=== PATIENT | female | born 1975 | race Caucasian/White ===

== ENCOUNTER 2022-06-28 15:50 | Emergency (ER) | payer OTHER ==
[2022-06-28] MEDS ORDERED: Sodium Chloride 0.9% 1000 ML 1,000 ML ONE (16:23)
[2022-06-28] MEDS ORDERED: Ativan 2 MG/1 ML VIAL IV ONE (16:26)
[2022-06-28 16:27] LABS: Hematocrit 44.9 % (35-47); Mean Cell Volume 100.7 fL (78-100); Mean Corpuscular Hemoglobin 33.6 pg (26-32); Mean Corpuscular Hgb Concent. 33.4 g/dL (32-36); Mean Platelet Volume 9.1 fL (7.5-11.0); Platelet Count 292 x10^3/uL (150-450); Red Blood Count 4.46 x10^6/uL (4.1-5.4); Red Cell Distribution Width 12.1 % (11.5-14.0); White Blood Count 15.3 x10^3/uL (4.0-10.5)
[2022-06-28] MEDS ORDERED: Ativan 2 MG/1 ML VIAL ONE (16:27)
[2022-06-28] MEDS ORDERED: Sodium Chloride 0.9% 1000 ML 1,000 ML IV SCH (16:30)
[2022-06-28] MEDS ORDERED: SANDOSTATIN 50MCG/ML IV STA (16:37)
[2022-06-28] MEDS ORDERED: FLAGYL 500 MG IVPB 500 MG/100 ML BAG IV STA (16:38)
[2022-06-28 16:39] LABS: ALBUMIN 4.9 g/dL (3.5-5.0); ALKALINE PHOSPHATASE 197 U/L (38-126); ANION GAP 23.9 MEQ/L (5-15); BLOOD UREA NITROGEN 4 mg/dL (7-17); CHLORIDE 104 mmol/L (98-107); Calcium 9.3 mg/dL (8.4-10.2); Carbon Dioxide 23 mmol/L (22-30); Creatinine 1 0.39 mg/dL (0.52-1.04); EST GLOMERULAR FILTRATION RATE > 60.0 ML/MIN; Glucose 130 mg/dL (74-106); Potassium 4.1 mmol/L (3.5-5.1); SGOT/AST 190 U/L (14-36); SGPT/ALT 145 U/L (0-35); SODIUM 146 mmol/L (137-145)
[2022-06-28] MEDS ORDERED: Levofloxacin 500MG/100ML D5W 500 MG/100 ML BAG IV STA (16:39)
[2022-06-28 16:40] LABS: INR 1.05 (0.8-3.0); PROTIME 11.4 SECONDS (9.4-12.5); PTT 27.4 SECONDS (25.1-36.5)
[2022-06-28] MEDS ORDERED: SODIUM CHLORIDE 0.9% IV SCH (17:00)
[2022-06-28] MEDS ORDERED: NEOSYNEPHRINE 0.5% NASAL SPRAY/DROPS NS ONE (17:00)
[2022-06-28] MEDS ORDERED: SANDOSTATIN IV SCH (17:00)
[2022-06-28] MEDS ORDERED: FLAGYL 500 MG IVPB 500 MG/100 ML BAG IV ONE (17:02)
[2022-06-28] MEDS ORDERED: NEOSYNEPHRINE 0.5% NASAL SPRAY/DROPS ONE (17:07)
[2022-06-28 17:11] LABS: ANISOCYTOSIS 1+; ATYPICAL LYMPHS 2 %; Eosinophil 1 % (0.00-3.0); Lymphocytes 38 % (24-44); Neutrophils 59 % (36.0-66.0); Platelet Estimate NORMAL (NORMAL); Total Cells Counted 100; Toxic Granulation 1+
[2022-06-28 17:19] LABS: ABO TYPING O; Antibody Screen NEGATIVE (NEGATIVE); RH TYPING POSITIVE
[2022-06-28] MEDS ORDERED: Levofloxacin 500MG/100ML D5W 500 MG/100 ML BAG IV ONE (17:44)
[2022-06-28] MEDS ORDERED: ARZOL Silver Nitrate Applicator TP ONE ×3 (18:19→18:26)
[2022-06-28 18:24] VITALS: BP 104/59; PULSE 89; O2SAT 95
--- NOTE | 2022-06-28 18:26 | ERPHSYRPT ---
- History of Present Illness Time Seen by Provider: 06/28/22 16:00 Source: patient Exam Limitations: no limitations Patient Subjective Stated Complaint: C/O nosebleed that started approx 30 minutes ago. Patient states this is her third nose bleed today. Originally only bleeding from left nare but is now bleeding from both nares. Triage Nursing Assessment: Patient arrived by ambulance. No SOB. SKin tone normal. She is alert and oriented; anxious. Active bleeding from both nares; left more than right. Physician History: Patient is a 46-year-old female presents to our ED via EMS for evaluation of epistaxis. Upon physical examination patient had blood coming from both nostrils and her mouth. Patient spitting up large clots. Large amount of bleeding observed. Patient appears very anxious. Patient tachycardic on the monitor. No trauma. No fever. Patient states this is her third nosebleed of the day. Patient had 2 other nosebleeds however they stopped spontaneously. Patient has been bleeding significantly more than an hour. No fever. No chills. No recent URI. Patient states that she has had other episodes of epistaxis that required intervention and resolved. Patient adds that she has a history of alcoholism. Patient tends to withdraw if she does not drink her alcohol. Patient states she has a history of liver cirrhosis. It is unclear whether or not patient has portal hypertension. No history of ascites. Symptoms are constant. Symptoms are moderate to severe in intensity. No significant worsening improving factors. Patient voices no other complaints or concerns at this time. Portions of this note were created with voice recognition technology. There may be grammatical, spelling, punctuation or sound alike errors Allergies/Adverse Reactions: Penicillins Allergy (Verified 06/28/22 15:52) Home Medications: Lifitegrast [Xiidra] 1 drop R BID 06/28/22 [History] PANTOPRAZOLE 40 mg Tablet [Protonix 40MG Tablet] 1 tab PO DAILY 06/28/22 [History] Rosuvastatin Calcium 1 tab PO DAILY 06/28/22 [History] Venlafaxine HCl [Venlafaxine HCl ER] 1 tab PO DAILY 06/28/22 [History] hydrOXYzine HCL [Hydroxyzine HCl] 15 mg PO DAILY PRN 06/28/22 [History] Hx Tetanus, Diphtheria Vaccination/Date Given: Yes Hx Influenza Vaccination/Date Given: No Hx Pneumococcal Vaccination/Date Given: No Immunizations Up to Date: Yes Travel Risk - International Travel Have you traveled outside of the country in past 3 weeks: No - Coronavirus Screening Are you exhibiting any of the following symptoms?: No Close contact with a COVID-19 positive Pt in past 14-21 Days: No - Vaccine Status Have you recieved a Covid-19 vaccination: Yes 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 - Review of Systems All Other Systems: Unable due to condition - Past Medical History Pertinent Past Medical History: Yes Cardiac History: High Cholesterol Musculoskeletal History: Fractures GI Medical History: GERD Psycho-Social History: Anxiety, Depression Other Medical History: dry eyes - Past Surgical History Past Surgical History: Yes Female Surgical History: Dilation & Curettage, Tubal Ligation, Other Other Surgical History: ablasion, Bilateral foot surgery - Social History Smoking Status: Former smoker Exposure to second hand smoke: No Drug Use: none Patient Lives Alone: No - Female History Hx Last Menstrual Period: No longer has them Hx Now: No - Nursing Vital Signs Nursing Vital Signs: Initial Vital Signs Pulse Rate 136 H 06/28/22 15:51 Respiratory Rate 17 06/28/22 15:51 Blood Pressure 144/126 06/28/22 15:51 O2 Sat by Pulse Oximetry 97 06/28/22 15:51 Pain Scale Pain Intensity 0 - Physical Exam General Appearance: moderate distress Eye Exam: PERRL/EOMI, eyes nml inspection, No scleral icterus Ears, Nose, Throat Exam: other (Large amount of blood from both nostrils and mouth. Patient spitting up large blood clots into emesis bag.) Neck Exam: normal inspection, non-tender, supple, full range of motion Respiratory Exam: normal breath sounds, chest tenderness, lungs clear, respiratory distress Cardiovascular Exam: normal peripheral pulses, tachycardia, other (Sinus tachycardia. Normal heart sounds.), No murmur Gastrointestinal/Abdomen Exam: soft, normal bowel sounds, No tenderness, No distention Extremity Exam: normal inspection, normal range of motion, pelvis stable Neurologic Exam: alert, oriented x 3, cooperative Skin Exam: normal color, warm, dry Lymphatic Exam: No adenopathy SpO2 Interpretation: normal SpO2: 95 O2 Delivery: Room Air - Course Nursing assessment & vital signs reviewed: Yes EKG Interpreted by Me: RATE ([id number]), Sinus Tach, NORMAL AXIS, NORMAL INTERVALS - Radiology Ultrasound Exam Abdomen Ultrasound: discussed w/radiologist (Fire Crew Worker. 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 06/28/22 16:22 Active IV Insertion STAT Care 06/28/22 16:21 Active ABDOMINAL-LIMITED [US] Stat Exams 06/28/22 17:18 Taken CBC W DIFF Stat Lab 06/28/22 16:25 Completed CMP Stat Lab 06/28/22 16:25 Completed Manual Differential NC Stat Lab 06/28/22 16:25 Completed PROTIME WITH INR Stat Lab 06/28/22 16:25 Completed PTT Stat Lab 06/28/22 16:25 Completed Medication Summary Generic Name Dose Route Start Last Admin Trade Name Freq PRN Reason Stop Dose Admin Sodium Chloride 1,000 mls @ 100 mls/hr 06/28/22 16:30 06/28/22 16:24 Sodium Chloride 0.9% 1000 Ml IV 07/28/22 16:29 100 mls/hr .Q10H RADHA Administration Octreotide Acetate 250 mcg/ 250 mls @ 50 mls/hr 06/28/22 17:00 06/28/22 16:51 Sodium Chloride IV 06/28/22 21:59 50 mls/hr .Q5H RADHA 50 mls/hr Administration Discontinued Medications Generic Name Dose Route Start Last Admin Trade Name Freq PRN Reason Stop Dose Admin Metronidazole 500 mg in 100 mls @ 200 mls/hr 06/28/22 16:38 06/28/22 17:43 Flagyl 500 Mg Ivpb IV 06/28/22 17:07 Infused STAT STA Infusion Levofloxacin/Dextrose 500 mg in 100 mls @ 100 mls/hr 06/28/22 16:39 06/28/22 17:45 Levofloxacin 500mg/100ml D5w IV 06/28/22 17:38 100 mls/hr STAT STA 100 mls/hr Administration Metronidazole Confirm 06/28/22 17:02 Flagyl 500 Mg Ivpb Administered 06/28/22 17:03 Dose 500 mg in 100 mls @ ud IV .STK-MED ONE Levofloxacin/Dextrose Confirm 06/28/22 17:44 Levofloxacin 500mg/100ml D5w Administered 06/28/22 17:45 Dose 500 mg in 100 mls @ ud IV .STK-MED ONE Lorazepam 1 mg 06/28/22 16:26 06/28/22 16:28 Lorazepam 2 Mg/1 Ml 2 Mg Vial IV 06/28/22 16:27 1 mg STAT ONE Administration Lorazepam Confirm 06/28/22 16:27 Lorazepam 2 Mg/1 Ml 2 Mg Vial Administered 06/28/22 16:28 Dose 2 mg .ROUTE .STK-MED ONE Octreotide Acetate 50 mcg 06/28/22 16:37 06/28/22 16:44 Octreotide Acetate 50 Mcg/Ml Ampul IV 06/28/22 16:38 50 mcg ONCE STA Administration Phenylephrine HCl Confirm 06/28/22 17:07 Neosynephrine 0.5% Nasal [place]/Drops Administered 06/28/22 17:08 Dose 15 ml .ROUTE .STK-MED ONE Phenylephrine HCl 15 ml 06/28/22 17:00 06/28/22 17:24 Neosynephrine 0.5% Nasal [place]/Drops NS 06/28/22 17:01 15 ml STAT ONE Administration Silver Nitrate 1 pkt 06/28/22 18:19 06/28/22 18:26 Silver Nitrate 1 Pkt Each TP 06/28/22 18:20 1 pkt NOW ONE Administration Silver Nitrate Confirm 06/28/22 18:20 Silver Nitrate 1 Pkt Each Administered 06/28/22 18:21 Dose 1 pkt TP .STK-MED ONE Lab/Rad Data: Laboratory Result Diagrams 06/28/22 16:25 06/28/22 16:25 Laboratory Results 06/28/22 06/28/22 06/28/22 Range/Units 16:41 16:25 16:25 WBC (4.0-10.5) x10^3/uL RBC (4.1-5.4) x10^6/uL Hgb (12.0-16.0) g/dL Hct (35-47) % MCV (78-100) fL MCH (26-32) pg MCHC (32-36) g/dL RDW (11.5-14.0) % Plt Count (150-450) x10^3/uL MPV (7.5-11.0) fL Segmented Neutrophils (36.0-66.0) % Lymphocytes (Manual) (24-44) % Eosinophils (Manual) (0.00-3.0) % Atypical Lymphocytes % Toxic Granulation Platelet Estimate (NORMAL) RBC Morphology Anisocytosis PT 11.4 (9.4-12.5) SECONDS INR 1.05 (0.8-3.0) APTT 27.4 (25.1-36.5) SECONDS Sodium 146 H (137-145) mmol/L Potassium 4.1 (3.5-5.1) mmol/L Chloride 104 (98-107) mmol/L Carbon Dioxide 23 (22-30) mmol/L Anion Gap 23.9 H (5-15) MEQ/L BUN 4 L (7-17) mg/dL Creatinine 0.39 L (0.52-1.04) mg/dL Estimated GFR > 60.0 ML/MIN Glucose 130 H (74-106) mg/dL Calcium 9.3 (8.4-10.2) mg/dL Total Bilirubin 0.70 (0.2-1.3) mg/dL AST 190 H (14-36) U/L ALT 145 H (0-35) U/L Alkaline Phosphatase 197 H (38-126) U/L Serum Total Protein 9.0 H (6.3-8.2) g/dL Albumin 4.9 (3.5-5.0) g/dL ABO Group O Rh Factor POSITIVE Antibody Screen NEGATIVE (NEGATIVE) 06/28/22 Range/Units 16:25 WBC 15.3 H (4.0-10.5) x10^3/uL RBC 4.46 (4.1-5.4) x10^6/uL Hgb 15.0 (12.0-16.0) g/dL Hct 44.9 (35-47) % MCV 100.7 H (78-100) fL MCH 33.6 H (26-32) pg MCHC 33.4 (32-36) g/dL RDW 12.1 (11.5-14.0) % Plt Count 292 (150-450) x10^3/uL MPV 9.1 (7.5-11.0) fL Segmented Neutrophils 59 (36.0-66.0) % Lymphocytes (Manual) 38 (24-44) % Eosinophils (Manual) 1 (0.00-3.0) % Atypical Lymphocytes 2 % Toxic Granulation 1+ Platelet Estimate NORMAL (NORMAL) RBC Morphology ABNORMAL Anisocytosis 1+ PT (9.4-12.5) SECONDS INR (0.8-3.0) APTT (25.1-36.5) SECONDS Sodium (137-145) mmol/L Potassium (3.5-5.1) mmol/L Chloride (98-107) mmol/L Carbon Dioxide (22-30) mmol/L Anion Gap (5-15) MEQ/L BUN (7-17) mg/dL Creatinine (0.52-1.04) mg/dL Estimated GFR ML/MIN Glucose (74-106) mg/dL Calcium (8.4-10.2) mg/dL Total Bilirubin (0.2-1.3) mg/dL AST (14-36) U/L ALT (0-35) U/L Alkaline Phosphatase (38-126) U/L Serum Total Protein (6.3-8.2) g/dL Albumin (3.5-5.0) g/dL ABO Group Rh Factor Antibody Screen (NEGATIVE) - Progress Progress: improved Progress Note: Treatment course include octreotide. Octreotide infusion stopped patient's bleeding. Patient later had trickle of blood from her left nare. We administered Carlos- Synephrine which appeared to help transiently. Patient later began to trickle blood from her left nostril. We applied a nose clamp. However in spite of the nose clamp patient continued has some trickle of blood from her left nostril. We then identified what appears to be a possible bleeding source. The area was cauterized using silver nitrate. This appeared to help. Patient later decided that she feels well and wants to go home. Patient's had significant medical advice. Patient is of sound mind. Patient is appropriate to make informed and independent medical decisions. Patient understands that leaving AGAINST MEDICAL ADVICE can result in delayed diagnosis, increased risk of morbidity, mortality, short and long-term disability including . In spite of these risks, patient has decided to leave AGAINST MEDICAL ADVICE. Patient understands that she may return to our ED at any point if she reconsiders. Patient agrees to follow-up with her primary care doctor within 48 hours for reevaluation. Patient voices no other complaints or concerns at this time. We will release patient AGAINST MEDICAL ADVICE per their request. Vital stable. Tachycardia resolved. We attempted to transfer patient various times. We contacted [facility]. Transfer declined as they do not have ENT and or interventional radiology currently available. I spoke to Dr. Evans GI physician at [facility] who declined transfer. Dr. Mendoza was a hospitalist who also declined transfer. Prior to declining transfer they advised obtaining a right upper quadrant ultrasound to assess if in fact patient has cirrhosis. Right upper quadrant ultrasound was completed. Fatty liver observed. Study was limited due to excessive bowel gas. Hepatic veins not well visualized due to excessive bowel gas. However no clear signs of liver cirrhosis. No ascites report was generated by stitcher feeder. Official read pending. We contacted [facility] and [facility]. Transferred declined as they did not have GI available. We contacted [place] on [address]. Patient declined that transfer. We contacted [facility] patient declined [facility] transfer also. Patient decided she felt well enough to go home. Patient left AGAINST MEDICAL ADVICE. As patient was in AGAINST MEDICAL ADVICE, her left nare began to bleed again after the cautery was completed. We will now place a Rhino Rocket. Rhino Rocket placed. Rhino Rocket size is 4.5. patient tolerated procedure well. No complications. Patient will leave AGAINST MEDICAL ADVICE. A Keflex prescription will be provided to patient. Portions of this note were created with voice recognition technology. There may be grammatical, spelling, punctuation or sound alike errors Patient is a 46-year-old female presents emergency department for evaluation of oropharyngeal bleeding possible esophageal variceal bleeding possible severe epistaxis. Bleeding resolved after administration of octreotide. We attempted transfer to several locations. Transfers were declined as they did not have ENT GI and interventional radiology readily available. Patient refused transfer to [facility] and [facility] as they were too far. Patient has a history of alcoholism. Patient tends to withdraw. Patient received a dose of Ativan to temporize her from withdrawal while she was in our ED. Physical exam reveals large amounts of blood coming from both nostrils as well as oropharynx. Testing ordered includes right upper quadrant ultrasound which reveals fatty liver. No obvious signs of portal hypertension/ascites. CBC CMP. Coagulation profile including PT/INR/PTT. No coagulopathy observed. Type and screen orde red. Silver nitrate stick used for cautery. Ativan use withdrawal. It was felt that patient had a esophageal variceal bleed. Flagyl Levaquin ordered. We attempted to order Zosyn but patient is allergic to penicillin. Phenylephrine also used to vasoconstrict the nasal vasculature. Rhino Rocket placed. Patient's complaint is acute. Patient was initially tachycardic. However as she calmed down and bleeding stopped tachycardia resolved. Patient was never hypotensive. Blood pressure was within normal limits. Complexity of problems addressed was moderate. New diagnosis with uncertain prognosis. Possible exacerbation of chronic illnesses patient states she has had nosebleeds in the p ast. No critical care time. Complexity of data reviewed and analyzed is moderate. EKG reviewed and interpreted by Dr. Hankins. Test ordered and reviewed. Patient served as independent historian. We discussed management with several outside doctors. However transfer was declined due to the lack of full spectrum specialist required to care for patient. Risk of complications and/or risk of morbidity/mortality of management is high. Patient received octreotide for bleeding control. Rhino Rocket placed. IV infusion/medications required to maintain control of bleeding. Patient was eating AMA. She was being rolled out of our ED she began to bleed again. Bleeding started after the octreotide was discontinued. Rhino Rocket in place. Patient decided to come back to our ED. Change of shift. Patient endorsed to Dr. Agudelo for final disposition. 06/28/22 18:54 Counseled pt/family regarding: lab results, diagnosis, need for follow-up, rad results - Departure Departure Disposition: AMA Clinical Impression: Oropharyngeal bleeding, Epistaxis Condition: Stable Critical Care Time: No Referrals: ADAN EARL, CONTINUOUS DRYOUT OPERATOR HELPER [Primary Care Provider] - Follow up/PCP as directed Additional Instructions: Return to our ED or follow-up with your family doctor to remove the Rhino Rocket, (nose packing) in 24 to 48 hours. Take antibiotic prescribed while the Rhino Rocket is in place. Discharge/Care Plan GHAZALAJEWELL was seen on 06/28/22 in the Emergency Room. The patient was counseled regarding Diagnosis,Lab results, Imaging studies, need for follow up and when to return to the Emergency Room. Prescriptions given: Discharge Note I have spoken with the patient and/or caregivers. I have explained the patient's condition, diagnosis and treatment plan based on the information available to me at this time. I have answered the patient's and/or caregiver's questions and ad dressed any concerns. The patient and/or caregivers have as good understanding of the patient's diagnosis, condition and treatment plan as can be expected at this point. The vital signs have been stable. The patient's condition is stable and appropriate for discharge from the emergency department. The patient will pursue further outpatient evaluation with the primary care physician or other designated or consulting physician as outlined in the discharge instructions. The patient and/or caregivers are agreeable to this plan of care and follow-up instructions have been explained in detail. The patient and/or caregivers have received these instruction. The patient/and or caregivers are aware that any significant change in condition or worsening of symptoms should prompt an immediate return to this or the closest emergency department or call 911. Prescriptions: Smz/Tmp Ds Tablet [Bactrim Ds Tablet] 1 udtab PO BID #14 tablet Smz/Tmp Ds Tablet [Bactrim Ds Tablet] 1 udtab PO BID 5 Days #10 tablet
[2022-06-28 19:43] LABS: Hematocrit 37.7 % (35-47); Hemoglobin 12.4 g/dL (12.0-16.0)
--- NOTE | 2022-06-29 08:36 | XRAY ---
Indication: Epistaxis. Hepatic steatosis. Two-dimensional right upper quadrant abdominal sonogram performed. Comparison: None Visualized liver demonstrates mild diffuse fatty echogenicity without focal solid/cystic mass or ascites. Portable vein demonstrates normal hepatopedal flow. Gallbladder normally distended without gallstones, wall thickening, or pericholecystic fluid. Common bile duct measures 3.6 mm. Pancreas obscured due to overlying bowel gas. Right kidney sonographically unremarkable and measures 10.6 cm in length Impression: Fatty liver. Nonvisualization pancreas. Remaining right upper quadrant sonogram is negative. Comment: Preliminary report was given.
== END 2022-06-28 18:50 | disposition left against medical advice (07) ==
LOC: ED 15:50
DX: R04.0 Epistaxis (principal); R58 Hemorrhage, not elsewhere classified; E78.5 Hyperlipidemia, unspecified; Z79.899 Other long term (current) drug therapy
CPT/HCPCS: 30901; 36000; 36415; 76705; 80053; 85014; 85018; 85025; 85610; 85730; 86850; 86900; 86901; 93041; 96365; 96367; 96374; 96375; 99284; J1956; J2060; J2354; A9270-GY

== ENCOUNTER 2022-06-28 18:55 | Emergency (ER) | payer OTHER ==
[2022-06-28] MEDS ORDERED: SANDOSTATIN 50MCG/ML IV ONE (18:56)
[2022-06-28] MEDS ORDERED: Sodium Chloride 0.9% 1000 ML 1,000 ML ONE (19:23)
[2022-06-28] MEDS ORDERED: Ativan 2 MG/1 ML VIAL ONE (19:23)
[2022-06-28] MEDS ORDERED: Sodium Chloride 0.9% 1000 ML 1,000 ML IV STA (19:30)
[2022-06-28] MEDS ORDERED: Ativan 2 MG/1 ML VIAL IV ONE (19:41)
--- NOTE | 2022-06-28 19:47 | ERPHSYRPT ---
- History of Present Illness Time Seen by Provider: 06/28/22 19:00 Source: patient Patient Subjective Stated Complaint: PT signed out ama and when she got to the waiting room, wanted to come back in. Triage Nursing Assessment: Pt signed out ama after trying to convince her to get transferred and when she went to waiting room, she started to bleed from her nose again. Physician History: Patient is a 46-year-old white female who presents with massive epistaxis and or upper GI bleed possibly varices. She was in the ER she was started on octreotide. Her bleeding was temporarily controlled and arrangements were being made to transfer her to a higher level of care when she signed out AMA. She went to the waiting room she started bleeding a little bit more and she was returned to the ER for transfer. Allergies/Adverse Reactions: Penicillins Allergy (Verified 06/28/22 15:52) Home Medications: Lifitegrast [Xiidra] 1 drop R BID 06/28/22 [History] PANTOPRAZOLE 40 mg Tablet [Protonix 40MG Tablet] 1 tab PO DAILY 06/28/22 [History] Rosuvastatin Calcium 1 tab PO DAILY 06/28/22 [History] Venlafaxine HCl [Venlafaxine HCl ER] 1 tab PO DAILY 06/28/22 [History] hydrOXYzine HCL [Hydroxyzine HCl] 15 mg PO DAILY PRN 06/28/22 [History] Hx Tetanus, Diphtheria Vaccination/Date Given: Yes Hx Influenza Vaccination/Date Given: No Hx Pneumococcal Vaccination/Date Given: No Immunizations Up to Date: Yes Travel Risk - International Travel Have you traveled outside of the country in past 3 weeks: No - Coronavirus Screening Are you exhibiting any of the following symptoms?: No Close contact with a COVID-19 positive Pt in past 14-21 Days: No - Vaccine Status Have you recieved a Covid-19 vaccination: 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 - Review of Systems Constitutional: No Fever, No Chills Eyes: No Symptoms Ears, Nose, & Throat: No Symptoms Respiratory: No Cough, No Dyspnea Cardiac: No Chest Pain, No Edema, No Syncope Abdominal/Gastrointestinal: No Abdominal Pain, No Nausea, No Vomiting, No Diarrhea Genitourinary Symptoms: No Dysuria Musculoskeletal: No Back Pain, No Neck Pain Skin: No Rash Neurological: No Dizziness, No Focal Weakness, No Sensory Changes Psychological: No Symptoms Endocrine: No Symptoms All Other Systems: Reviewed and Negative - Past Medical History Pertinent Past Medical History: Yes Cardiac History: High Cholesterol Musculoskeletal History: Fractures GI Medical History: GERD Psycho-Social History: Anxiety, Depression Other Medical History: dry eyes - Past Surgical History Past Surgical History: Yes Female Surgical History: Dilation & Curettage, Tubal Ligation, Other Other Surgical History: ablasion, Bilateral foot surgery - Social History Smoking Status: Former smoker Exposure to second hand smoke: No Drug Use: none Patient Lives Alone: No - Female History Hx Now: No - Nursing Vital Signs Nursing Vital Signs: Initial Vital Signs Temperature 97.8 F 06/28/22 18:56 Pulse Rate 132 H 06/28/22 18:56 Respiratory Rate 24 06/28/22 18:56 Blood Pressure 98/69 06/28/22 18:56 O2 Sat by Pulse Oximetry 98 06/28/22 18:56 Pain Scale Pain Intensity 0 - Physical Exam General Appearance: moderate distress, alert Eye Exam: PERRL/EOMI, eyes nml inspection Ears, Nose, Throat Exam: other (Blood noted from both nares and from the mouth.) Neck Exam: normal inspection, non-tender, supple, full range of motion Respiratory Exam: normal breath sounds, lungs clear, No respiratory distress Cardiovascular Exam: regular rate/rhythm, normal heart sounds, normal peripheral pulses Gastrointestinal/Abdomen Exam: soft, normal bowel sounds, No tenderness, No mass Back Exam: normal inspection, normal range of motion, No CVA tenderness, No vertebral tenderness Extremity Exam: normal inspection, normal range of motion, pelvis stable Neurologic Exam: alert, oriented x 3, cooperative, normal mood/affect, nml cerebellar function, nml station & gait, sensation nml, No motor deficits Skin Exam: normal color, warm, dry, No rash Lymphatic Exam: No adenopathy SpO2: 98 Ordered Tests: Medication Summary Discontinued Medications Generic Name Dose Route Start Last Admin Trade Name Freq PRN Reason Stop Dose Admin Sodium Chloride Confirm 06/28/22 19:23 Sodium Chloride 0.9% 1000 Ml Administered 06/28/22 19:24 Dose 1,000 mls @ ud .ROUTE .STK-MED ONE Lorazepam Confirm 06/28/22 19:23 Lorazepam 2 Mg/1 Ml 2 Mg Vial Administered 06/28/22 19:24 Dose 2 mg .ROUTE .STK-MED ONE - Progress Progress: unchanged Medical Desision Making - Risk of complications The pt has a high risk of morbidity or mortality based on: Drug therapy requiring intensive monitoring for toxicity, Need for emergency major surgery, Decision regarding hospitilization or escalation of hosp level of care - Departure Departure Disposition: Transfer (Patient will be transferred to [facility] Dr. Case hospitalist excepting she will be placed in ICU) Clinical Impression: Oropharyngeal bleeding, Epistaxis Condition: Critical Critical Care Time: Yes Critical Care Time(excluding separately billable procedures): Critical 30-74 mins (40) Referrals: ADAN EARL NP [Primary Care Provider] - Follow up/PCP as directed
[2022-06-28 20:33] VITALS: BP 101/69; PULSE 112; O2SAT 96
== END 2022-06-28 21:05 | disposition short-term general hospital (02) ==
LOC: ED 18:55
DX: R04.0 Epistaxis (principal); R58 Hemorrhage, not elsewhere classified; E78.5 Hyperlipidemia, unspecified; Z79.899 Other long term (current) drug therapy
CPT/HCPCS: 96360; 96374; 99284; 99291; J2060; J2354

== ENCOUNTER 2023-01-24 19:48 | Emergency (ER) | payer OTHER ==
[2023-01-24 19:59] VITALS: RESP 18; TEMP 97.6
[2023-01-24] MEDS ORDERED: Sodium Chloride 0.9% 1000 ML 1,000 ML ONE (20:28)
[2023-01-24] MEDS ORDERED: TORAdol 30 mg Injection ONE (20:28)
[2023-01-24 20:39] LABS: Absolute Neutrophil Ct (ANC) 4.76 x10^3/uL (1.4-6.9); BASOPHIL % 1.3 % (0.0-0.4); Basophil (Absolute #) 0.14 x10^3/uL (0-0.4); Eosinophil % 1.9 % (0.00-5.0); Eosinophil (Absolute #) 0.21 x10^3/uL (0-0.5); Hematocrit 41.6 % (35-47); Hemoglobin 14.2 g/dL (12.0-16.0); IMMATURE GRAN # 0.03 x10^3u/L (0.00-0.03); IMMATURE GRAN % 0.3 % (0.00-0.4); Lymphocyte (Absolute #) 5.13 x10^3/uL (1.0-4.6); Lymphocytes % 46.1 % (24.0-44.0); Mean Cell Volume 93.9 fL (78-100); Mean Corpuscular Hemoglobin 32.1 pg (26-32); Mean Corpuscular Hgb Concent. 34.1 g/dL (32-36); Monocyte (Absolute #) 0.87 x10^3/uL (0.0-1.3); Monocytes % 7.8 % (0.0-12.0); Neutrophil % 42.6 % (36.0-66.0); Platelet Count 258 x10^3/uL (150-450); Red Blood Count 4.43 x10^6/uL (4.1-5.4); Red Cell Distribution Width 13.6 % (11.5-14.0); White Blood Count 11.1 x10^3/uL (4.0-10.5)
[2023-01-24] MEDS: Sodium Chloride 0.9% 1000 ML 1,000 ML IV STA (20:55)
[2023-01-24 20:56] LABS: ALKALINE PHOSPHATASE 158 U/L (38-126); ANION GAP 18.4 MEQ/L (5-15); BLOOD UREA NITROGEN 8 mg/dL (7-17); CHLORIDE 95 mmol/L (98-107); Calcium 8.9 mg/dL (8.4-10.2); Carbon Dioxide 25 mmol/L (22-30); EST GLOMERULAR FILTRATION RATE > 60.0 ML/MIN; Glucose 89 mg/dL (74-106); LIPASE 155 U/L (23-300); Potassium 4.3 mmol/L (3.5-5.1); SGOT/AST 207 U/L (14-36); SGPT/ALT 240 U/L (0-35); SODIUM 135 mmol/L (137-145); Total Protein 8.2 g/dL (6.3-8.2)
[2023-01-24] MEDS: TORAdol 30 mg Injection IV ONE (20:56)
--- NOTE | 2023-01-24 21:56 | ERPHSYRPT ---
- History of Present Illness Time Seen by Provider: 01/24/23 20:00 Source: patient Exam Limitations: no limitations Patient Subjective Stated Complaint: rectal bleeding x3 days with diarrhea Triage Nursing Assessment: pt ambulatory to bed by self with slow steady gait, pt alert and oriented x3, skin pwd, pt c/o rectal bleeding x3 days that is dixon ght red, pt has been on antibiotics for close to a month per pt which has caused her diarrhea, etoh on board, pt is a daily drinker. Physician History: Patient is a 47-year-old female presents to our ED for evaluation of diarrhea, hematochezia, back pain, dental pain. Patient states that she has been having dental pain. Patient was in our ED for the same. Patient was prescribed clindamycin. Patient started taking her clindamycin and developed diarrhea. Patient later noticed bright red blood per rectum. Patient is here for this issue. No active bleeding. Patient notices blood in her stool upon bowel movement. Otherwise no active bleeding. Patient has some lower back pain. No hematuria or dysuria. No trauma. No fever. Patient is otherwise healthy. She has a dentist to follow-up with. Patient voices no other complaints or concerns at this time. Portions of this note were created with voice recognition technology. There may be grammatical, spelling, punctuation or sound alike errors Timing/Duration: today Severity: mild Modifying Factors: Improves With: nothing Associated Symptoms: denies symptoms Allergies/Adverse Reactions: Penicillins Allergy (Verified 01/24/23 19:55) Home Medications: Venlafaxine HCl [Venlafaxine HCl ER] 1 tab PO DAILY 06/28/22 [History] hydrOXYzine HCL [Hydroxyzine HCl] 25 mg PO HS 06/28/22 [History] Ascorbic Acid 500 mg [Vitamin C 500 MG] 500 mg PO DAILY 01/15/23 [History] Buspirone HCl 7.5 mg PO BID 01/15/23 [History] Diclofenac Sodium 75 mg PO BID 01/15/23 [History] Mecobalamin [B12 Active] 1,000 mcg PO DAILY 01/15/23 [History] Melatonin [Melatonin ER] 20 mg PO HS 01/15/23 [History] Mv-Min/Iron/Folic/Calcium/Vitk [Women's Multivitamin Tablet] 1 each PO DAILY 01/15/23 [History] Ropinirole HCl 0.5 mg [Requip 0.5 MG] 1 mg PO HS 01/15/23 [History] Hx Tetanus, Diphtheria Vaccination/Date Given: No Hx Influenza Vaccination/Date Given: Yes (2021) Hx Pneumococcal Vaccination/Date Given: No Travel Risk - International Travel Have you traveled outside of the country in past 3 weeks: No - Coronavirus Screening Are you exhibiting any of the following symptoms?: No Close contact with a COVID-19 positive Pt in past 14-21 Days: No - Vaccine Status Have you recieved a Covid-19 vaccination: Yes [employer] Associate: Moderna - Vaccination Dates Date of 2cond Vaccination (if applicable): unknown - Review of Systems Constitutional: No Symptoms, No Fever, No Chills Eyes: No Symptoms Ears, Nose, & Throat: No Symptoms Respiratory: No Symptoms, No Cough, No Dyspnea Cardiac: No Symptoms, No Chest Pain, No Edema, No Syncope Abdominal/Gastrointestinal: No Symptoms, No Abdominal Pain, No Nausea, No Vomiting, No Diarrhea Genitourinary Symptoms: No Symptoms, No Dysuria Musculoskeletal: No Symptoms, No Back Pain, No Neck Pain Skin: No Symptoms, No Rash Neurological: No Symptoms, No Dizziness, No Focal Weakness, No Sensory Changes Psychological: No Symptoms Endocrine: No Symptoms Hematologic/Lymphatic: No Symptoms Immunological/Allergic: No Symptoms All Other Systems: Reviewed and Negative - Past Medical History Pertinent Past Medical History: Yes Neurological History: No Pertinent History ENT History: Other Cardiac History: High Cholesterol Respiratory History: No Pertinent History Endocrine Medical History: No Pertinent History Musculoskeletal History: No Pertinent History GI Medical History: GERD History: No Pertinent History Psycho-Social History: Anxiety, Depression Female Reproductive Disorders: No Pertinent History Other Medical History: dry eyes - Past Surgical History Past Surgical History: Yes Neuro Surgical History: No Pertinent History Cardiac: No Pertinent History Respiratory: No Pertinent History Gastrointestinal: No Pertinent History Genitourinary: No Pertinent History Musculoskeletal: Orthopedic Surgery Female Surgical History: Dilation & Curettage, Tubal Ligation, Other Other Surgical History: ablasion, Bilateral foot surgery - Social History Smoking Status: Former smoker Exposure to second hand smoke: No Drug Use: none Patient Lives Alone: No - Female History Hx Last Menstrual Period: post Hx Now: No (N) - Nursing Vital Signs Nursing Vital Signs: Initial Vital Signs Temperature 97.6 F 01/24/23 19:58 Pulse Rate 93 H 01/24/23 19:58 Respiratory Rate 18 01/24/23 19:58 Blood Pressure 143/99 01/24/23 19:58 O2 Sat by Pulse Oximetry 99 01/24/23 19:58 Pain Scale Pain Intensity 5 - Physical Exam General Appearance: no apparent distress, alert Eye Exam: PERRL/EOMI, eyes nml inspection Ears, Nose, Throat Exam: normal ENT inspection, TMs normal, pharynx normal, moist mucous membranes Neck Exam: normal inspection, non-tender, supple, full range of motion Respiratory Exam: normal breath sounds, lungs clear, No respiratory distress Cardiovascular Exam: regular rate/rhythm, normal heart sounds, normal peripheral pulses Gastrointestinal/Abdomen Exam: soft, normal bowel sounds, No tenderness, No mass Back Exam: normal inspection, normal range of motion, No CVA tenderness, No vertebral tenderness Extremity Exam: normal inspection, normal range of motion, pelvis stable Neurologic Exam: alert, oriented x 3, cooperative, normal mood/affect, nml cerebellar function, nml station & gait, sensation nml, No motor deficits Skin Exam: normal color, warm, dry, No rash Lymphatic Exam: No adenopathy SpO2 Interpretation: normal SpO2: 97 O2 Delivery: Room Air - Course Nursing assessment & vital signs reviewed: Yes - CT Exams Abdomen/Pelvis CT Interpretation: Tele-radiologist Report (No comps, fatty liver and distended urinary bladder. Remaining abdomen pelvis normal. CT recon lumbar spine no comps. Normal lumbar spine) Ordered Tests: Active Orders 24 hr Category Date Time Status IV Insertion STAT Care 01/24/23 20:21 Active ABDOMEN AND PELVIS W/0 CONTRAS [CT] Stat Exams 01/24/23 20:22 Taken RECONSTRUCTION [CT] Routine Exams 01/24/23 20:27 Taken CBC W DIFF Stat Lab 01/24/23 20:21 Completed CMP Stat Lab 01/24/23 20:32 Completed HCG QUALITATIVE, URINE Stat Lab 01/24/23 21:56 Completed LIPASE Stat Lab 01/24/23 20:32 Completed TROPONIN Q4H Lab 01/24/23 20:32 Completed TROPONIN Q4H Lab 01/25/23 00:30 Ordered TROPONIN Q4H Lab 01/25/23 04:30 Ordered UA W/RFX UR CULTURE Stat Lab 01/24/23 21:36 Completed Medication Summary Discontinued Medications Generic Name Dose Route Start Last Admin Trade Name Marcial PRN Reason Stop Dose Admin Hydrocodone Bitart/Acetaminophen 4 tab 01/24/23 23:05 01/24/23 23:10 Hydrocodone/Apap 5/325 1 Tab Tablet PO 01/24/23 23:06 4 tab SENT HOME W/ PATIENT ONE Administration Hydrocodone Bitart/Acetaminophen Confirm 01/24/23 23:09 Hydrocodone/Apap 5/325 1 Tab Tablet Administered 01/24/23 23:10 Dose 4 tab .ROUTE .STK-MED ONE Sodium Chloride 1,000 mls @ 999 mls/hr 01/24/23 20:21 01/24/23 22:20 Sodium Chloride 0.9% 1000 Ml IV 01/24/23 21:21 Infused .Q1H1M STA Infusion Sodium Chloride Confirm 01/24/23 20:28 Sodium Chloride 0.9% 1000 Ml Administered 01/24/23 20:29 Dose 1,000 mls @ ud .ROUTE .STK-MED ONE Ketorolac Tromethamine 30 mg 01/24/23 20:21 01/24/23 20:56 Ketorolac Tromethamine 30 Mg/Ml Inj IV 01/24/23 20:22 30 mg STAT ONE Administration Ketorolac Tromethamine Confirm 01/24/23 20:28 Ketorolac Tromethamine 30 Mg/Ml Inj Administered 01/24/23 20:29 Dose 30 mg .ROUTE .STK-MED ONE Lab/Rad Data: Laboratory Result Diagrams 01/24/23 20:21 01/24/23 20:32 Laboratory Results 01/24/23 01/24/23 01/24/23 Range/Units 21:56 21:36 20:32 WBC (4.0-10.5) x10^3/uL RBC (4.1-5.4) x10^6/uL Hgb (12.0-16.0) g/dL Hct (35-47) % MCV (78-100) fL MCH (26-32) pg MCHC (32-36) g/dL RDW (11.5-14.0) % Plt Count (150-450) x10^3/uL MPV (7.5-11.0) fL Gran % (36.0-66.0) % Immature Gran % (Auto) (0.00-0.4) % Nucleat RBC Rel Count (0.00-0.1) % Eos # (Auto) (0-0.5) x10^3/uL Immature Gran # (Auto) (0.00-0.03) x10^3u/L Absolute Lymphs (auto) (1.0-4.6) x10^3/uL Absolute Monos (auto) (0.0-1.3) x10^3/uL Absolute Nucleated RBC (0.00-0.01) x10^3u/L Lymphocytes % (24.0-44.0) % Monocytes % (0.0-12.0) % Eosinophils % (0.00-5.0) % Basophils % (0.0-0.4) % Absolute Granulocytes (1.4-6.9) x10^3/uL Basophils # (0-0.4) x10^3/uL Sodium (137-145) mmol/L Potassium (3.5-5.1) mmol/L Chloride (98-107) mmol/L Carbon Dioxide (22-30) mmol/L Anion Gap (5-15) MEQ/L BUN (7-17) mg/dL Creatinine (0.52-1.04) mg/dL Estimated GFR ML/MIN Glucose (74-106) mg/dL Calcium (8.4-10.2) mg/dL Total Bilirubin (0.2-1.3) mg/dL AST (14-36) U/L ALT (0-35) U/L Alkaline Phosphatase (38-126) U/L Troponin I < 0.012 (0.000-0.034) ng/mL Serum Total Protein (6.3-8.2) g/dL Albumin (3.5-5.0) g/dL Lipase (23-300) U/L Urine Color Yellow (Yellow) Urine Appearance Clear (Clear) Urine pH 5.5 (4.6-8.0) Ur Specific Reynolds <=1.005 (1.005-1.030) Urine Protein Negative (Negative) Urine Glucose (UA) Negative (Negative) mg/dL Urine Ketones Negative (Negative) Urine Blood Negative (Negative) Urine Nitrite Negative (Negative) Urine Bilirubin Negative (Negative) Urine Urobilinogen 0.2 (0.2) mg/dL Ur Leukocyte Esterase Negative (Negative) U Hyaline Cast (Auto) NONE SEEN (0-2) /LPF Urine Microscopic RBC 0-2 (0-5) /HPF Urine Microscopic WBC 0-2 (0-5) /HPF Ur Epithelial Cells None Seen (None Seen) /HPF Urine Bacteria None Seen (None Seen) /HPF Urine Culture Reflexed NO (NO) Urine HCG, Qual NEGATIVE (NEGATIVE) Slides for Path Review 01/24/23 01/24/23 Range/Units 20:32 20:21 WBC 11.1 H (4.0-10.5) x10^3/uL RBC 4.43 (4.1-5.4) x10^6/uL Hgb 14.2 (12.0-16.0) g/dL Hct 41.6 (35-47) % MCV 93.9 (78-100) fL MCH 32.1 H (26-32) pg MCHC 34.1 (32-36) g/dL RDW 13.6 (11.5-14.0) % Plt Count 258 (150-450) x10^3/uL MPV 9.0 (7.5-11.0) fL Gran % 42.6 (36.0-66.0) % Immature Gran % (Auto) 0.3 (0.00-0.4) % Nucleat RBC Rel Count 0.0 (0.00-0.1) % Eos # (Auto) 0.21 (0-0.5) x10^3/uL Immature Gran # (Auto) 0.03 (0.00-0.03) x10^3u/L Absolute Lymphs (auto) 5.13 H (1.0-4.6) x10^3/uL Absolute Monos (auto) 0.87 (0.0-1.3) x10^3/uL Absolute Nucleated RBC 0.00 (0.00-0.01) x10^3u/L Lymphocytes % 46.1 H (24.0-44.0) % Monocytes % 7.8 (0.0-12.0) % Eosinophils % 1.9 (0.00-5.0) % Basophils % 1.3 (0.0-0.4) % Absolute Granulocytes 4.76 (1.4-6.9) x10^3/uL Basophils # 0.14 (0-0.4) x10^3/uL Sodium 135 L (137-145) mmol/L Potassium 4.3 (3.5-5.1) mmol/L Chloride 95 L (98-107) mmol/L Carbon Dioxide 25 (22-30) mmol/L Anion Gap 18.4 H (5-15) MEQ/L BUN 8 (7-17) mg/dL Creatinine 0.50 L (0.52-1.04) mg/dL Estimated GFR > 60.0 ML/MIN Glucose 89 (74-106) mg/dL Calcium 8.9 (8.4-10.2) mg/dL Total Bilirubin 0.30 (0.2-1.3) mg/dL AST 207 H (14-36) U/L ALT 240 H (0-35) U/L Alkaline Phosphatase 158 H (38-126) U/L Troponin I (0.000-0.034) ng/mL Serum Total Protein 8.2 (6.3-8.2) g/dL Albumin 5.0 (3.5-5.0) g/dL Lipase 155 (23-300) U/L Urine Color (Yellow) Urine Appearance (Clear) Urine pH (4.6-8.0) Ur Specific Reynolds (1.005-1.030) Urine Protein (Negative) Urine Glucose (UA) (Negative) mg/dL Urine Ketones (Negative) Urine Blood (Negative) Urine Nitrite (Negative) Urine Bilirubin (Negative) Urine Urobilinogen (0.2) mg/dL Ur Leukocyte Esterase (Negative) U Hyaline Cast (Auto) (0-2) /LPF Urine Microscopic RBC (0-5) /HPF Urine Microscopic WBC (0-5) /HPF Ur Epithelial Cells (None Seen) /HPF Urine Bacteria (None Seen) /HPF Urine Culture Reflexed (NO) Urine HCG, Qual (NEGATIVE) Slides for Path Review YES - Progress Progress: improved Progress Note: Patient is a 47-year-old female presents emergency department for evaluation of rectal bleeding low back pain and dental pain. Patient recently diagnosed with a dental abscess. Patient just completed a course of clindamycin. Concerning the clindamycin patient developed profuse diarrhea. Patient states her rectal area is tender and feels raw. Patient observed bright red blood per rectum only when she has a bowel movement. Otherwise no active bleeding. Patient's physical exam was otherwise nonremarkable. CT abdomen pelvis completed. 3D reconstruction views of the lumbar spine were included. No acute pathology observed on her CT abdomen pelvis or her 3D reconstruction views of the lumbar spine. Patient laboratory work-up essentially nonremarkable with exception of her liver enzymes. Patient's liver enzymes are elevated today however patient's liver enzymes were elevated in June 2022. Patient advises that she chronically drinks alcohol. She explains that she has a fatty liver and sees a liver specialist in [place] for her elevated liver enzymes. Patient states that she has Keflex at home which she has been taking. Patient declined additional antibiotic prescription but request that we discharge patient with some home pain medications. 01/24/23 23:10 Patient was discharged home with 4 [place] pills per her request. Patient has a follow-up appointment with her dentist this week. Patient states she feels much better. No active pain at this time. Patient requesting discharge. Patient understands importance of following up regarding her liver enzymes. I expressed to the patient the importance of following up with her primary care doctor as well. Although diarrhea may be contributing to rectal bleeding I believe patient requires a colonoscopy which she has not had. Patient understands the importance of following up with her primary care doctor for obtaining a colono scopy to further evaluate and confirm the source and cause of rectal bleeding. 01/24/23 23:12 Complexity of problems addressed as moderate acute complicated No critical care time Complexity of data reviewed and analyzed is moderate. Test reviewed test analyzed. Results of laboratory and imaging studies clinically correlated with history and physical exam. Please see above for disposition details Risk complication and or risk of morbidity/mortality of patient management is moderate. Patient received [place] pain medication for home. Patient discharged home. Vital stable. Time spent to discharge patient approximately 15 minutes. Plan of care established for shared decision making. No social determinants of health present impede follow-up. 01/24/23 23:19 Counseled pt/family regarding: lab results, diagnosis, need for follow-up, rad results - Departure Departure Disposition: Home Clinical Impression: Back pain, Hematochezia, Dental implant pain, Transaminitis, Elevated alkaline phosphatase level Condition: Stable Critical Care Time: No Referrals: ADAN EARL NP [Primary Care Provider] - Follow up/PCP as directed Instructions: Bloody stools, Dental Pain, Low Back Pain ED Additional Instructions: Discharge/Care Plan JEWELL VIVAR was seen on 01/24/23 in the Emergency Room. The patient was counseled regarding Diagnosis,Lab results, Imaging studies, need for follow up and when to return to the Emergency Room. Prescriptions given: Discharge Note I have spoken with the patient and/or caregivers. I have explained the patient's condition, diagnosis and treatment plan based on the information available to me at this time. I have answered the patient's and/or caregiver's questions and addressed any concerns. The patient and/or caregivers have as good understanding of the patient's diagnosis, condition and treatment plan as can be expected at this point. The vital signs have been stable. The patient's condition is stable and appropriate for discharge from the emergency department. The patient will pursue further outpatient evaluation with the primary care physician or other designated or consulting physician as outlined in the discharge instructions. The patient and/or caregivers are agreeable to this plan of care and follow-up instructions have been explained in detail. The patient and/or caregivers have received these instruction. The patient/and or caregivers are aware that any significant change in condition or worsening of symptoms should prompt an immediate return to this or the closest emergency department or call 911.
[2023-01-24 22:01] LABS: HCG URINE TEST NEGATIVE (NEGATIVE)
[2023-01-24 22:02] VITALS: BP 116/67
[2023-01-24 22:05] LABS: Appearance Clear (Clear); Bacteria None Seen /HPF (None Seen); Bilirubin Negative (Negative); Blood Negative (Negative); Epithelial Cells None Seen /HPF (None Seen); Glucose, Urine Negative (Negative); Hyaline Casts NONE SEEN /LPF (0-2); Ketones Negative (Negative); Leukocyte Esterase Negative (Negative); Nitrite Negative (Negative); Ph 5.5 (4.6-8.0); Protein,Urine Dip Negative (Negative); RBC 0-2 /HPF (0-5); Specific Gravity <=1.005 (1.005-1.030); Urobilinogen 0.2 mg/dL (0.2); WBC 0-2 /HPF (0-5)
[2023-01-24 22:06] LABS: ADD URINE CULTURE? NO (NO)
[2023-01-24 22:15] LABS: Slide Review 1 YES
[2023-01-24 23:04] VITALS: PULSE 80
[2023-01-24 23:06] VITALS: O2SAT 97
[2023-01-24] MEDS ORDERED: NORCO 5/325 MG ONE (23:09)
[2023-01-24] MEDS: NORCO 5/325 MG PO ONE (23:10)
--- NOTE | 2023-01-25 08:45 | XRAY ---
Indication: Pain, nausea, and rectal bleeding. Multiple contiguous axial images obtained through the abdomen and pelvis without contrast. Comparison: None Lung bases clear. Heart not enlarged. Noncontrasted stomach and bowel loops appear nonobstructed with normal appendix. Mild diffuse scattered colonic fecal debris. Mild diffuse fatty liver. 2 cm right ovary cyst. No free fluid/air. Under bladder is moderately distended. Remaining liver, gallbladder, pancreas, spleen, adrenal glands, kidneys, ureters, bladder, and uterus are unremarkable for noncontrast exam. Minimal aortoiliac calcifications without AAA. Osseous structures intact. No ventral or inguinal hernias. Impression: 1. Distended urinary bladder. Rule out outlet obstruction versus neurogenic bladder. 2. Fatty liver. 3. Remaining CT abdomen/pelvis without contrast exam is negative.
--- NOTE | 2023-01-25 08:47 | XRAY ---
Indication: Lumbar pain. No known injury. Sagittal, coronal, and axial reformatted images lumbar spine obtained using raw data from same day CT abdomen/pelvis exam. Comparison: None Axial images negative for acute fracture, suspicious bony lesions, or spinal canal stenosis. Tiny multilevel anterior and tiny posterior inferior L5 endplate spurring. Facets are symmetric. Sagittal and coronal reformatted images demonstrates normal alignment with minimal L5-S1 disc space narrowing. Remaining vertebral body heights/disc spaces maintained. No acute compression fracture or subluxation. CT abdomen/pelvis report septally. Impression: Minimal degenerative changes. Remaining CT lumbar spine is negative.
== END 2023-01-24 23:20 | disposition home or self-care (01) ==
LOC: ED 19:48
DX: M54.50 Low back pain, unspecified (principal); K92.1 Melena; M27.69 Other endosseous dental implant failure; R74.01 Elevation of levels of liver transaminase levels; R74.8 Abnormal levels of other serum enzymes; R19.7 Diarrhea, unspecified; E78.5 Hyperlipidemia, unspecified; Z79.899 Other long term (current) drug therapy
CPT/HCPCS: 36000; 36415; 74176; 76376; 80053; 81001; 81025; 83690; 84484; 85025; 96360; 96374; 99284; J1885; A9270-GY

== ENCOUNTER 2023-10-16 10:51 | Emergency (ER) | payer OTHER ==
[2023-10-16 11:14] VITALS: TEMP 97.1
--- NOTE | 2023-10-16 11:31 | ERPHSYRPT ---
- History of Present Illness Time Seen by Provider: 10/16/23 11:28 Source: patient Exam Limitations: no limitations Physician History: 48-year-old female presents to our ED for evaluation of dizziness, near syncope and a headache.. Patient observed her blood pressure was elevated. No associated chest pain. Patient describes tingling of her fingers. Patient states her sent her here for an exam. Symptoms are mild to moderate in intensity. No specific worsening or improving factors. Patient denies a history of the same. She voices no other complaints or concerns at this time. No chest pain or shortness of breath. Portions of this note were created with voice recognition technology. There may be grammatical, spelling, punctuation or sound alike errors Timing/Duration: today Severity: moderate Modifying Factors: Improves With: nothing Associated Symptoms: denies symptoms Allergies/Adverse Reactions: fish oil Allergy (Verified 10/16/23 11:12) Penicillins Allergy (Verified 10/16/23 11:11) Home Medications: Venlafaxine HCl [Venlafaxine HCl ER] 1 tab PO DAILY 06/28/22 [History] hydrOXYzine HCL [Hydroxyzine HCl] 25 mg PO HS 06/28/22 [History] Ascorbic Acid 500 mg [Vitamin C 500 MG] 500 mg PO DAILY 01/15/23 [History] Buspirone HCl 7.5 mg PO BID 01/15/23 [History] Diclofenac Sodium 75 mg PO BID 01/15/23 [History] Mecobalamin [B12 Active] 1,000 mcg PO DAILY 01/15/23 [History] Melatonin [Melatonin ER] 20 mg PO HS 01/15/23 [History] Mv-Min/Iron/Folic/Calcium/Vitk [Women's Multivitamin Tablet] 1 each PO DAILY 01/15/23 [History] Ropinirole HCl 0.5 mg [Requip 0.5 MG] 1 mg PO HS 01/15/23 [History] Hx Tetanus, Diphtheria Vaccination/Date Given: No Hx Influenza Vaccination/Date Given: Yes (2021) Hx Pneumococcal Vaccination/Date Given: No Travel Risk - International Travel Have you traveled outside of the country in past 3 weeks: No - Review of Systems Constitutional: No Symptoms, No Fever, No Chills Eyes: No Symptoms Ears, Nose, & Throat: No Symptoms Respiratory: No Symptoms, No Cough, No Dyspnea Cardiac: No Symptoms, No Chest Pain, No Edema, No Syncope Abdominal/Gastrointestinal: No Symptoms, No Abdominal Pain, No Nausea, No Vomiting, No Diarrhea Genitourinary Symptoms: No Symptoms, No Dysuria Musculoskeletal: No Symptoms, No Back Pain, No Neck Pain Skin: No Symptoms, No Rash Neurological: No Symptoms, No Dizziness, No Focal Weakness, No Sensory Changes Psychological: No Symptoms Endocrine: No Symptoms Hematologic/Lymphatic: No Symptoms Immunological/Allergic: No Symptoms All Other Systems: Reviewed and Negative - Past Medical History Pertinent Past Medical History: Yes Neurological History: No Pertinent History ENT History: Other Cardiac History: High Cholesterol Respiratory History: No Pertinent History Endocrine Medical History: No Pertinent History Musculoskeletal History: No Pertinent History GI Medical History: GERD History: No Pertinent History Psycho-Social History: Anxiety, Depression Female Reproductive Disorders: No Pertinent History Other Medical History: dry eyes - Past Surgical History Past Surgical History: Yes Neuro Surgical History: No Pertinent History Cardiac: No Pertinent History Respiratory: No Pertinent History Gastrointestinal: No Pertinent History Genitourinary: No Pertinent History Musculoskeletal: Orthopedic Surgery Female Surgical History: Dilation & Curettage, Tubal Ligation, Other Other Surgical History: ablasion, Bilateral foot surgery - Female History Hx Last Menstrual Period: 06/28/12 - Social History Smoking Status: Former smoker Exposure to second hand smoke: No Drug Use: none Patient Lives Alone: No - Nursing Vital Signs Nursing Vital Signs: Initial Vital Signs Temperature 97.1 F 10/16/23 11:13 Pulse Rate 84 10/16/23 11:13 Respiratory Rate 16 10/16/23 11:13 Blood Pressure 150/94 10/16/23 11:13 O2 Sat by Pulse Oximetry 100 10/16/23 11:13 Pain Scale Pain Intensity 4 - Physical Exam General Appearance: no apparent distress, alert Eye Exam: PERRL/EOMI, eyes nml inspection Ears, Nose, Throat Exam: normal ENT inspection, TMs normal, pharynx normal, moist mucous membranes Neck Exam: normal inspection, non-tender, supple, full range of motion Respiratory Exam: normal breath sounds, lungs clear, airway intact, No respiratory distress Cardiovascular Exam: regular rate/rhythm, normal heart sounds, normal peripheral pulses Gastrointestinal/Abdomen Exam: soft, normal bowel sounds, No tenderness, No mass Back Exam: normal inspection, normal range of motion, No CVA tenderness, No vertebral tenderness Extremity Exam: normal inspection, normal range of motion, pelvis stable Neurologic Exam: alert, oriented x 3, cooperative, resaw machine operator II-XII nml as tested, no rmal mood/affect, nml cerebellar function, nml station & gait, sensation nml, No motor deficits, No sensory deficit, No confusion, No facial droop, No slurred speech, No aphasia, No abnormal gait, No abnormal cerebellar tests, No abnormal resaw machine operator II-XII, No EOM palsy Skin Exam: normal color, warm, dry, No rash Lymphatic Exam: No adenopathy SpO2 Interpretation: normal SpO2: 100 O2 Delivery: Room Air - Course Nursing assessment & vital signs reviewed: Yes EKG Interpreted by Me: RATE (68), Sinus Rhythm, NORMAL AXIS, NORMAL INTERVALS - CT Exams Head CT Interpretation: Tele-radiologist Report (Normal CT head without contrast, calcified sebaceous cyst) Ordered Tests: Active Orders 24 hr Category Date Time Status Magazine Designer STAT Care 10/16/23 11:22 Active EKG-ER Only STAT Care 10/16/23 11:22 Active IV Insertion STAT Care 10/16/23 11:22 Active Pulse Oximetry (ED) STAT Care 10/16/23 11:22 Active HEAD WITHOUT CONTRAST [CT] Stat Exams 10/16/23 11:22 Completed CBC W DIFF Stat Lab 10/16/23 11:44 Completed CMP Stat Lab 10/16/23 11:44 Completed TROPONIN Q4H Lab 10/16/23 11:44 Completed TROPONIN Q4H Lab 10/16/23 13:10 Completed TROPONIN Q4H Lab 10/16/23 19:30 Ordered UA W/RFX UR CULTURE Stat Lab 10/16/23 11:54 Completed Medication Summary Discontinued Medications Generic Name Dose Route Start Last Admin Trade Name Freq PRN Reason Stop Dose Admin Acetaminophen 975 mg 10/16/23 14:13 10/16/23 14:25 Acetaminophen 325 Mg Tablet PO 10/16/23 14:14 975 mg STAT ONE Administration Acetaminophen Confirm 10/16/23 14:22 Acetaminophen 325 Mg Tablet Administered 10/16/23 14:23 Dose 975 mg .ROUTE .STK-MED ONE Ketorolac Tromethamine 30 mg 10/16/23 14:13 10/16/23 14:26 Ketorolac Tromethamine 30 Mg/Ml Inj IM 10/16/23 14:14 30 mg STAT ONE Administration Ketorolac Tromethamine Confirm 10/16/23 14:22 Ketorolac Tromethamine 30 Mg/Ml Inj Administered 10/16/23 14:23 Dose 30 mg .ROUTE .STK-MED ONE Lab/Rad Data: Laboratory Result Diagrams 10/16/23 11:44 10/16/23 11:44 Laboratory Results 10/16/23 10/16/23 10/16/23 Range/Units 13:10 11:54 11:44 WBC (3.98-10.04) x10^3/uL RBC (3.93-5.22) x10^6/uL Hgb (11.2-15.7) g/dL Hct (34.1-44.9) % MCV (79.4-94.8) fL MCH (25.6-32.2) pg MCHC (32.2-35.5) g/dL RDW (11.7-14.4) % Plt Count (182-369) x10^3/uL MPV (9.4-12.3) fL Gran % (34.0-71.1) % Immature Gran % (Auto) (0.001-0.429) % Nucleat RBC Rel Count (0.00-0.2) % Eos # (Auto) (0.04-0.36) x10^3/uL Immature Gran # (Auto) (0.001-0.031) x10^3u/L Absolute Lymphs (auto) (1.18-3.74) x10^3/uL Absolute Monos (auto) (0.24-0.86) x10^3/uL Absolute Nucleated RBC (0.00-0.012) x10^3u/L Lymphocytes % (19.3-51.7) % Monocytes % (4.7-12.5) % Eosinophils % (0.7-5.8) % Basophils % (0.1-1.2) % Absolute Granulocytes (1.56-6.13) x10^3/uL Basophils # (0.01-0.08) x10^3/uL Sodium (135-145) mmol/L Potassium (3.5-5.1) mmol/L Chloride (98-107) mmol/L Carbon Dioxide (22-30) mmol/L Anion Gap (5-15) MEQ/L BUN (7-17) mg/dL Creatinine (0.52-1.04) mg/dL Estimated GFR ML/MIN Glucose (74-106) mg/dL Calcium (8.4-10.2) mg/dL Total Bilirubin (0.2-1.3) mg/dL AST (14-36) U/L ALT (0-35) U/L Alkaline Phosphatase (38-126) U/L Troponin I < 0.012 < 0.012 (0.000-0.033) ng/mL Serum Total Protein (6.3-8.2) g/dL Albumin (3.5-5.0) g/dL Urine Color Yellow (Yellow) Urine Appearance Clear (Clear) Urine pH 6.0 (4.6-8.0) Ur Specific [place] <=1.005 (1.005-1.030) Urine Protein Negative (Negative) Urine Glucose (UA) Negative (Negative) mg/dL Urine Ketones Negative (Negative) Urine Blood Negative (Negative) Urine Nitrite Negative (Negative) Urine Bilirubin Negative (Negative) Urine Urobilinogen 0.2 (0.2) mg/dL Ur Leukocyte Esterase Negative (Negative) U Hyaline Cast (Auto) NONE SEEN (0-2) /LPF Urine Microscopic RBC 0-2 (0-5) /HPF Urine Microscopic WBC 0-2 (0-5) /HPF Ur Epithelial Cells None Seen (None Seen) /HPF Urine Bacteria None Seen (None Seen) /HPF Urine Culture Reflexed NO (NO) 10/16/23 10/16/23 Range/Units 11:44 11:44 WBC 6.1 (3.98-10.04) x10^3/uL RBC 4.23 (3.93-5.22) x10^6/uL Hgb 12.9 (11.2-15.7) g/dL Hct 38.0 (34.1-44.9) % MCV 89.8 (79.4-94.8) fL MCH 30.5 (25.6-32.2) pg MCHC 33.9 (32.2-35.5) g/dL RDW 12.5 (11.7-14.4) % Plt Count 278 (182-369) x10^3/uL MPV 9.7 (9.4-12.3) fL Gran % 47.2 (34.0-71.1) % Immature Gran % (Auto) 0.2 (0.001-0.429) % Nucleat RBC Rel Count 0.0 (0.00-0.2) % Eos # (Auto) 0.14 (0.04-0.36) x10^3/uL Immature Gran # (Auto) 0.01 (0.001-0.031) x10^3u/L Absolute Lymphs (auto) 2.56 (1.18-3.74) x10^3/uL Absolute Monos (auto) 0.44 (0.24-0.86) x10^3/uL Absolute Nucleated RBC 0.00 (0.00-0.012) x10^3u/L Lymphocytes % 42.0 (19.3-51.7) % Monocytes % 7.2 (4.7-12.5) % Eosinophils % 2.3 (0.7-5.8) % Basophils % 1.1 (0.1-1.2) % Absolute Granulocytes 2.88 (1.56-6.13) x10^3/uL Basophils # 0.07 (0.01-0.08) x10^3/uL Sodium 140 (135-145) mmol/L Potassium 3.8 (3.5-5.1) mmol/L Chloride 112 H (98-107) mmol/L Carbon Dioxide 19 L (22-30) mmol/L Anion Gap 13.9 (5-15) MEQ/L BUN 9 (7-17) mg/dL Creatinine 0.91 (0.52-1.04) mg/dL Estimated GFR 76.9 ML/MIN Glucose 112 H (74-106) mg/dL Calcium 9.5 (8.4-10.2) mg/dL Total Bilirubin 0.50 (0.2-1.3) mg/dL AST 30 (14-36) U/L ALT 33 (0-35) U/L Alkaline Phosphatase 69 (38-126) U/L Troponin I (0.000-0.033) ng/mL Serum Total Protein 6.6 (6.3-8.2) g/dL Albumin 4.1 (3.5-5.0) g/dL Urine Color (Yellow) Urine Appearance (Clear) Urine pH (4.6-8.0) Ur Specific [place] (1.005-1.030) Urine Protein (Negative) Urine Glucose (UA) (Negative) mg/dL Urine Ketones (Negative) Urine Blood (Negative) Urine Nitrite (Negative) Urine Bilirubin (Negative) Urine Urobilinogen (0.2) mg/dL Ur Leukocyte Esterase (Negative) U Hyaline Cast (Auto) (0-2) /LPF Urine Microscopic RBC (0-5) /HPF Urine Microscopic WBC (0-5) /HPF Ur Epithelial Cells (None Seen) /HPF Urine Bacteria (None Seen) /HPF Urine Culture Reflexed (NO) - Progress Progress: improved Progress Note: 48-year-old female presents to our ED for evaluation of a headache, dizziness, elevated blood pressure, and a near syncopal episode. Upon arrival to our ED patient symptoms had resolved other than her blood pressure was elevated off of baseline and she continued to complain of a headache. CT head negative for acute intracranial pathology. Laboratory workup essentially nonremarkable. Troponin negative x 2. EKG normal sinus rhythm. Neuroexam was completely normal upon arrival and time of discharge. Patient ambulated throughout our ED with a normal gait pattern. Patient states that she needed to leave to go back to work. Prescription for Toradol forwarded to patient's pharmacy. Patient to follow-up with her primary care doctor within 48 hours for evaluation. Patient received Toradol and Tylenol for pain control. Headache improved patient requesting discharge. Blood pressure normalized. Patient states she ne eds to report to work Portions of this note were created with voice recognition technology. There may be grammatical, spelling, punctuation or sound alike errors Complexity problem addressed is moderate acute complicated. No critical care time. Complex of data reviewed and analyzed is moderate. Test ordered test reviewed results analyzed and correlated clinically with history and physical e xam. Vital stable. Time spent to discharge patient is approximately 20 minutes. Plan of care established for shared decision making. No social determinants of health present impede follow-up. Portions of this note were created with voice recognition technology. There may be grammatical, spelling, punctuation or sound alike errors 10/16/23 14:43 10/16/23 14:46 Counseled pt/family regarding: lab results, diagnosis, need for follow-up, rad results - Departure Departure Disposition: Home Clinical Impression: Calcified sebaceous cyst on scalp, Headache Condition: Stable Critical Care Time: No Referrals: WINDY RICKS MD [Primary Care Provider] - Follow up/PCP as directed Instructions: Tension Headache (DC) Additional Instructions: Discharge/Care Plan JEWELL VIVAR was seen on 10/16/23 in the Emergency Room. The patient was coun seled regarding Diagnosis,Lab results, Imaging studies, need for follow up and when to return to the Emergency Room. Prescriptions given: Discharge Note I have spoken with the patient and/or caregivers. I have explained the patient's condition, diagnosis and treatment plan based on the information available to me at this time. I have answered the patient's and/or caregiver's questions and addressed any concerns. The patient and/or caregivers have as good understanding of the patient's diagnosis, condition and treatment plan as can be expected at this point. The vital signs have been stable. The patient's condition is stable and appropriate for discharge from the emergency department. The patient will pursue further outpatient evaluation with the primary care physician or other designated or consulting physician as outlined in the discharge instructions. The patient and/or caregivers are agreeable to this plan of care and follow-up instructions have been explained in detail. The patient and/or caregivers have received these instruction. The patient/and or caregivers are aware that any significant change in condition or worsening of symptoms should prompt an immediate return to this or the closest emergency department or call 911. Forms: Work/School Release Form Prescriptions: Ketorolac Trometh 10 mg Tab [TORAdol 10 MG TABLET] 10 mg PO TID 5 Days #15 tablet
[2023-10-16 11:59] LABS: Absolute Neutrophil Ct (ANC) 2.88 x10^3/uL (1.56-6.13); BASOPHIL % 1.1 % (0.1-1.2); Basophil (Absolute #) 0.07 x10^3/uL (0.01-0.08); Eosinophil % 2.3 % (0.7-5.8); Eosinophil (Absolute #) 0.14 x10^3/uL (0.04-0.36); Hemoglobin 12.9 g/dL (11.2-15.7); IMMATURE GRAN # 0.01 x10^3u/L (0.001-0.031); IMMATURE GRAN % 0.2 % (0.001-0.429); Lymphocyte (Absolute #) 2.56 x10^3/uL (1.18-3.74); Mean Cell Volume 89.8 fL (79.4-94.8); Mean Corpuscular Hemoglobin 30.5 pg (25.6-32.2); Mean Corpuscular Hgb Concent. 33.9 g/dL (32.2-35.5); Mean Platelet Volume 9.7 fL (9.4-12.3); Monocyte (Absolute #) 0.44 x10^3/uL (0.24-0.86); Monocytes % 7.2 % (4.7-12.5); Neutrophil % 47.2 % (34.0-71.1); Platelet Count 278 x10^3/uL (182-369); Red Blood Count 4.23 x10^6/uL (3.93-5.22); Red Cell Distribution Width 12.5 % (11.7-14.4); White Blood Count 6.1 x10^3/uL (3.98-10.04)
[2023-10-16 12:02] LABS: ALBUMIN 4.1 g/dL (3.5-5.0); ANION GAP 13.9 MEQ/L (5-15); BILIRUBIN,TOTAL 0.5 mg/dL (0.2-1.3); Calcium 9.5 mg/dL (8.4-10.2); Creatinine 1 0.91 mg/dL (0.52-1.04); EST GLOMERULAR FILTRATION RATE 76.9 ML/MIN; Potassium 3.8 mmol/L (3.5-5.1); Total Protein 6.6 g/dL (6.3-8.2)
[2023-10-16 12:04] LABS: Appearance Clear (Clear); Bacteria None Seen /HPF (None Seen); Bilirubin Negative (Negative); Blood Negative (Negative); Epithelial Cells None Seen /HPF (None Seen); Glucose, Urine Negative (Negative); Hyaline Casts NONE SEEN /LPF (0-2); Ketones Negative (Negative); Leukocyte Esterase Negative (Negative); Nitrite Negative (Negative); Protein,Urine Dip Negative (Negative); RBC 0-2 /HPF (0-5); Specific Gravity <=1.005 (1.005-1.030); Urobilinogen 0.2 mg/dL (0.2); WBC 0-2 /HPF (0-5)
[2023-10-16 12:06] LABS: ADD URINE CULTURE? NO (NO)
--- NOTE | 2023-10-16 12:16 | XRAY ---
Indication: Headache and dizziness 4 days. Elevated blood pressure. Multiple contiguous axial images obtained through the head without contrast. Comparison: None Normal appearing brain parenchyma, ventricles, and bony calvarium. Scalp demonstrates a few incidental tiny round calcified masses, probable calcified sebaceous cysts. Impression: Normal CT head without contrast exam.
[2023-10-16 14:19] VITALS: O2SAT 100
[2023-10-16] MEDS ORDERED: TORAdol 30 mg Injection ONE (14:22)
[2023-10-16] MEDS ORDERED: TYLENOL 325 MG ONE (14:22)
[2023-10-16] MEDS: TYLENOL 325 MG PO ONE (14:25)
[2023-10-16] MEDS: TORAdol 30 mg Injection IM ONE (14:26)
[2023-10-16 14:31] VITALS: BP 130/86; PULSE 72
[2023-10-16 14:32] VITALS: RESP 16
== END 2023-10-16 14:35 | disposition home or self-care (01) ==
LOC: ED 10:51
DX: L72.3 Sebaceous cyst (principal); R51.9 Headache, unspecified; R42 Dizziness and giddiness; R55 Syncope and collapse; E78.5 Hyperlipidemia, unspecified; Z79.899 Other long term (current) drug therapy
CPT/HCPCS: 36415; 70450; 80053; 81001; 84484; 85025; 93005; 93041; 94760; 96372; 99284; J1885; A9270-GY

== ENCOUNTER 2024-05-05 09:10 | Day surgery (SDC) | payer OTHER ==
--- NOTE | 2024-05-05 08:34 | HP ---
HISTORY OF PRESENT ILLNESS: A 48-year-old. The patient had some dark stools, questionable melena, had some bright stools, increased constipation, change in bowel habits, takes Dulcolax and MiraLAX. The patient has to push stool back she says, has some pain in her back. Heart disease. Dad has had colon cancer. PAST MEDICAL HISTORY: Reflux, history of headaches or migraines, history of restless legs, hyperlipidemia, anxiety, depression, constipation. HOME MEDICATIONS: Venlafaxine, topiramate, ropinirole, potassium chloride, pantoprazole, Linzess, Ketoralac, hydroxyzine, buspirone, bupropion. ALLERGIES: Fish oil and penicillin. PAST SURGICAL HISTORY: She has had a urine ablation in the past. SOCIAL HISTORY: No smoking or alcohol abuse. FAMILY HISTORY: Heart disease and colon cancer. REVIEW OF SYSTEMS: Twelve systems reviewed. Pertinent for above. No history of chest pain or palpitations. Other systems negative or noncontributory as above and per preadmission questionnaire. PHYSICAL EXAMINATION: GENERAL: Height 5 feet 3 inches. BMI 29.58. HEENT: Sclerae nonicteric NECK: No JVD. CARDIOVASCULAR: Regular rate and rhythm. RESPIRATORY: Equal excursion, nonlabored breathing. ABDOMEN: Soft. SKIN: Dry. EXTREMITIES: No cyanosis or edema NEUROLOGIC: Alert and oriented, moving all extremities symmetrically. PSYCHIATRIC: Appropriate mood and affect. RECTAL: Deferred until endoscopy exam. IMPRESSION: Question of melena, change in bowel habits, increased constipation. Needs colonoscopy and EGD. Risks of EGD and colonoscopy. Shown the risk sheet, explained the sheet. Feel she would benefit from EGD and colonoscopy. Risks explained in detail not limited to bleeding and infection; risk of bowel injury or perforation; risk of missed or nondiagnosis or incomplete exam possibly requiring barium enema, barium swallow, possible need for other procedure or referrals; risk of anesthesia or sedation; risk of bowel prep, but not limited to, and possibility of symptoms. She understands. Will proceed with EGD and colonoscopy as an outpatient. Otherwise, continue medications for her anxiety, gastroesophageal reflux disease, hyperlipidemia, restless leg syndrome, and headaches.
[2024-05-05 09:50] VITALS: RESP 18
[2024-05-05] MEDS ORDERED: Lactated Ringers 1,000 ML IV ONE (09:57)
[2024-05-05] MEDS: Lactated Ringers 1,000 ML IV SCH (09:59)
[2024-05-05] MEDS ORDERED: Versed 2 MG/2 ML Injection ONE (11:39)
[2024-05-05] MEDS ORDERED: propofoL IV ONE ×2 (11:39→12:02)
[2024-05-05 12:41] VITALS: PULSE 75; O2SAT 100
[2024-05-05 12:53] VITALS: BP 115/78; TEMP 97.2
--- NOTE | 2024-05-06 09:18 | OP ---
SURGERY DATE/TIME: 05/05/2024 [id number] PREOPERATIVE DIAGNOSES: 1) Family history of colon cancer. 2) Change in bowel habits. 3) Question of melena. POSTOPERATIVE DIAGNOSES: 1) Mild gastric erythema versus gastropathy or early gastritis. 2) Fair bowel prep. 3) Fairly normal ileum and colon mucosa. 4) Small pancolonic diverticula. 5) Small polyps. 6) ASA class 2. 7) Withdrawal time was approximately 10 minutes on the colonoscopy. PROCEDURES: 1) Esophagogastroduodenoscopy with cold biopsy of the small bowel to evaluate for celiac sprue, cold biopsy of the antrum for Helicobacter pylori. 2) Colonoscopy to the terminal ileum. 3) Retrograde ileoscopy. 4) Random cold biopsy of the ileum to evaluate for microscopic ileitis. 5) Random cold biopsy of the colon to evaluate for microscopic colitis. 6) Hot biopsy polypectomy of sigmoid colon polyps x2 or x3. SURGEON: Matt Mazariegos MD ANESTHESIA: MAC. ESTIMATED BLOOD LOSS: Minimal. INDICATIONS: Consent was obtained. DESCRIPTION OF PROCEDURE AND FINDINGS: Patient was taken to the endoscopy room. MAC anesthesia was induced. After official time-out, no disagreement in planned procedure. Bite block positioned. Videogastroscope easily passed down the esophagus through to the junction of the third and fourth portions of the duodenum. The duodenum was grossly unremarkable, but given her change in bowel habits, a cold biopsy was taken to evaluate for celiac sprue. Good hemostasis was noted. Scope pulled back in the stomach and had some gastric erythema, whether it was early gastritis or gastropathy. Cold biopsy was taken to evaluate for H pylori. On retroflex, the GE junction was snug against the scope. The scope pulled back up. The GE junction was about 38 cm. Z line was crisp. The esophagus was grossly unremarkable. The scope was withdrawn. No signs of any mucosal lesions in the esophagus. Attention was then turned to colonoscopy. Digital rectal exam did not reveal any rectal masses. Videocolonoscope was inserted and passed up through the very tortuous sigmoid, descending, transverse, and ascending colon. With 2 staff members putting compression on the abdomen, the scope was able to reach the cecum. Appendiceal orifice and valve well visualized. Prep overall was fair. A little liquidy, semisolid stool throughout the colon, slightly limiting exam for small lesions. The scope was carefully withdrawn over the next 10 minutes. She had a few scattered small diverticula throughout the entire colon. It should be noted that the scope was passed up to terminal ileum. Retrograde ileoscopy was performed, which was grossly unremarkable. Random cold biopsy taken of the ileum to evaluate for microscopic colitis. Again, the scope was withdrawn over the next 10 minutes. Random cold biopsy was taken of the colon to evaluate for microscopic colitis. There was no microscopic inflammation. There were a few scattered diverticula throughout the entire colon. Scope pulled back around the sigmoid colon. Two or 3 small early polyps versus hyperplastic lesions removed with the hot biopsy forceps. Good hemostasis was noted. Scope was withdrawn. Patient tolerated the procedure well. There were no immediate complications. Findings were discussed with family and friend out in the waiting area. We will see her back in the office next week.
== END 2024-05-05 13:02 | disposition home or self-care (01) ==
LOC: SDC 09:10
PROVIDERS: ATTEND Surgery
DX: K92.1 Melena (principal); R19.4 Change in bowel habit; Z80.0 Family history of malignant neoplasm of digestive organs; K29.70 Gastritis, unspecified, without bleeding; K57.30 Diverticulosis of large intestine without perforation or abscess without bleeding; K63.5 Polyp of colon
CPT/HCPCS: J2250; J2704